=== PATIENT | male | born 1980 | race Caucasian/White ===

== ENCOUNTER 2016-02-17 15:19 | Inpatient (IN) | payer MEDICARE, MEDICAID ==
[~2016-02-17] VITALS: Ht 177.8 cm; Wt 76.4 kg
[2016-02-17] VITALS (13 sets, daily range): BP systolic 94–112; BP diastolic 65–77; PULSE 87–100; RESP 14–20; O2SAT 92–96
[~2016-02-17 15:19] MED LIST: MINERALS PO; NAPR220C11 PO; TEGRETOL 400 MG PO; VITAMINS PO
[2016-02-17] MEDS ORDERED: Polyethylene Glycol (PEG) 17 Gm Powder PO PRN (17:40)
[2016-02-17] MEDS ORDERED: Ondansetron 2 mg/mL 2 mL Inj IVPUSH PRN (17:40)
[2016-02-17] MEDS ORDERED: Alum-Mag Hydrox-Simeth 30 mL Suspension PO PRN (17:40)
--- NOTE | 2016-02-17 18:10 | PCM.HPMED ---
Subjective Date of Service Feb 17, 2016 Primary Provider: Admitting Physician: Glenroy Mims MD Primary Care Physician: Gautam Hammer MD Attending Physician: Glenroy Mims MD History of Present Illness: Initially present to [facility] on 02/11/2016 with 2 days fever Mom was sick Chest x-ray with bibasilar infiltrate with small there are bronchial ground WBC 18.5 with bands of 28 Admitted for sepsis, hypotension, pneumonia, possible UTI as well Past medical history significant for autism/developmental delay/seizure disorder /history of DVTs/history of recurrent UTI/asthma Originally complaining of shortness of breath and difficulty breathing PCP sent him to the ED initially Patient is a 35-year-old male with a medical history of developmental delay, nonverbal, seizure disorder, Hx of DVT and UTI initially presented with fever cough and abnormal x-ray with infiltrate at [place]. He was diagnosed with pneumonia sepsis, MRSA positive sputum. Since then developed A. fib with reported asystole up to 12 seconds. Patient is a 35-year-old male nonverbal with MHx for MR, seizure disorder, hx DVT, recurrent UTI, and asthma transfer from [facility] here for workup and treatment of possible heart block, in addition to continue medical management of MRSA pneumonia and paroxysmal atrial fibrillation. Patient initially presented to [facility] with Sepsis pneumonia subsequently developed arrhythmias. - Developed atrial fibrillation and converted back to normal sinus after diltiazem drip and 1 dose of metoprolol, 02/12/2016 - Reported intermitted pause, longest 12sec. asymptomatic however. - Initially developed atrial fibrillation and converted back to normal sinus after diltiazem drip and 1 dose of metoprolol, 02/12/2016 Allergies Coded Allergies: morphine (Verified Allergy, Severe, 02/17/16) Seizures penicillin G (Verified Allergy, Severe, 02/17/16) Uncoded Allergies: SULFA (Allergy, Severe, 01/17/11) Home Medications Albuterol 2.5 mg/3 mL via nebulizer when necessary Carbamazepine 400 mg a.m. and p.m. Warfarin 7.5 mg qd Levetiracetam 1000 mg a.m. and p.m. CoQ10 300 mg daily Multivitamin daily Vitamin D3 5000 international unit daily Vitamin C 1000 units daily Vitamin E 1000 units daily Probiotics PMH Development immediately Autism Seizure disorder History of DVT Recurrent UTI Spinal fracture in 2015 Head injury at childhood Bladder and bowel incontinence Surgical History No noted surgeries Family History Father with multiple medical problem still alive at 61 years old Mother unknown Brother development of daily living Social History Hx Alcohol Use: No Hx Substance Use: No Hx Tobacco Use: No Exam Vital Signs Vital Sign - Last Date Time Temp Pulse Resp B/P Pulse Ox O2 Delivery O2 Flow Rate FiO2 02/17/16 17:30 100 15 98/69 94 Oxy Mask 6.00 Lab and Diagnostics Labs Lab from [facility] 11/07/2016 WBC 8.3, Hgb 12, HCT 36.2, platelet clumping unable to report, no bands NA 143, K3.7, CL 110, CO2 is 27, BUN 5, CR 0.6, MG 1.9, calcium 9.2, albumin 2.2 Total bili 0.3, alkaline phosphatase 63, AST 33, ALT 35 Microbiology Per Culture report from [facility] Source sputum collected on 02/11/2016 Organism methicillin-resistant staph aureus Sensitivity panel as follow below Ciprofloxacin resistant Clindamycin resistant Erythromycin resistant Gentamicin sensitive Levofloxacin resistant The nasal lid sensitive Oxacillin resistant Trimethoprim/sulfamethoxazole sensitive Vancomycin sensitive Cardiac Echo Impressions Per echocardiogram report obtained from [facility] Impression 1. There is normal LV and RV systolic function 2. Both atria normal signs 3. Cannot completely exclude SVT in subcostal view due to image quality. However suspicious level given the fact that RV chamber size is normal RV systolic pressure is normal as well. Consider repeat focused study to rule out VSD with poor image quality 4. Visit dilated aortic root measuring at 3.9 cm 5. Mild to moderate tricuspid regurgitation with right ventricular systolic pressure measured at 19 mmhg Dictated by: Myron Whittington MD 02/13/16 3071 Assessment & Plan Patient is a 35-year-old male nonverbal with MHx for MR, seizure disorder, hx DVT, recurrent UTI, and asthma transfer from [facility] here for workup and treatment of possible heart block, in addition to continue medical management of MRSA pneumonia and paroxysmal atrial fibrillation. Patient initially presented to [facility] with Sepsis pneumonia subsequently developed arrhythmias. Arrhythmia, present on admission, active - Likely sepsis induced arrhythmias that will resolve with sepsis resolution - Concerns for incomplete heart block, possible evolving to luis 3rd degree block - Placed on telemetry with Pacer pads on. - Cardiology Dr. Mims has been consulted Paroxysmal afib, present on admission, active - Tried 1 dose of amiodarone failed to convert prior to transfer - Rate currently controlled - Telemetry as above Pneumonia - Increasing SOB with fevers, Crx/CTA showed bibasilar pneumonia - Sputum culture positive for methicillin resistant staph aureus sensitive to Linezolid - On the linezolid twice a day since 02/13/2016, initially on vancomycin, ertapenem, and Levaquin Hypoxia, POA, active - Current on nasal canula - ABG, BIPAP should he desat. Hypotension, present on admission, active - Received 2L NS bolus prior to arrival - Monitor, bolus fluid as needed Seizure disorder - Cont keppra 1000mg BID - Cont holding PO carbamazepine 400mg AM and 600mg PM. Linezolid interacts with carbamazepine. DVT prophylaxis: heparin subQ Antipyretic: Acetaminophen PRN Antinausea: Ondansetron PRN Bowel regiment PRN Patient is admitted under observation status with expected length of stay GREATER than 2 midnights due to severity of presenting symptoms, risk of adverse event, and complexity of treatment plan. VTE Prophylaxis: Sub-Q Heparin (Unfractionated) Resuscitation Status: CPR: Attempt Resuscitation Attending Statement The patient was seen and examined together with on 02/17/2016 and I agree with the history, exam and plan as outlined in the note above. 3L oximask diminished right side Mike Sun DO Feb 17, 2016 18:10 Toan Tidwell MD Feb 17, 2016 21:55
[2016-02-17] MEDS ORDERED: Albuterol 2.5 mg/3 mL Inhalation Solution NEB PRN (19:20)
--- NOTE | 2016-02-17 20:01 | NUR ---
Received/Transfer Received from [facility] about 1730 to [facility], Dr. Mims requested they stop on their way to the floor for assessment. Placed in Respiratory Isolation. VSS. Afebrile. Occ. weak cough. LS decreased in RLL. Trace pedal edema. Tele Afib 80's-low 100's. Pompa catheter in place and draining moderate-large amt. clear straw colored urine. Attends on. Transfer air mattress under pt. O2 on at 6L per oxymask with SPO2 92-96%. Makes eye contact but not following commands. Occ. Hiccups and grunts. Droolin. Watching TV. Face washed. No signs of pain. See EMR for further info. Called Report to Carlee Ramachandran RN about 1929. Transported to 2026 via stretcher by staff with all belongings at 1945 in no distress.
[2016-02-17] MEDS ORDERED: carBAMazepine 200 mg Tablet PO SCH ×2 (20:30→20:35)
[2016-02-17] MEDS: 0.9% Sodium Chloride 1,000 ML IV SCH (20:31)
[2016-02-17] MEDS: levETIRAcetam Inj 1,000 MG in IV Premix 1 EACH IV SCH (20:55)
[2016-02-17] MEDS: Linezolid Inj 600 MG in IV Premix 1 EACH IV SCH (22:26)
[2016-02-18] VITALS (8 sets, daily range): BP systolic 90–102; BP diastolic 51–77; PULSE 90–108; RESP 16–18; O2SAT 94–97
[2016-02-18] MEDS: Heparin 5,000 Unit/mL Inj SUBQ SCH ×3 (01:12→17:11)
[2016-02-18 05:14] LABS: BASOPHILS % (AUTO) 0.4 % (0-3); EOSINOPHILS % (AUTO) 1.4 % (0-5); MONOCYTES % (AUTO) 9.9 % (4-12); Mean Corpuscular Hemoglobin 29.5 pg (27.0-35.0); Mean Corpuscular Volume 85.3 fL (81-100); Platelet Count 307 bil/L (150-400)
[2016-02-18] MEDS ORDERED: Atropine 1 mg/10 mL (Code) Syringe ONE (05:51)
--- NOTE | 2016-02-18 06:23 | ABG ---
DateTimeAnalyzed 06:18:00 -_ pH ____7.453 - 7.350 7.450 pCO2 ___38.4__ -mmHg 35.0 45.0 pO2 ___81.2__ -mmHg 69.0 116 HCO3- ___26.4__ -mmol/L 22.0 26.0 ABE ____2.9__ -mmol/L -2.0 2.0 tHb ___12.4__ -g/dL O2Hb ___94.4__ -% COHb ____0.9__ -% MetHb ____0.9__ -% sO2 ___96.1__ -% 25.0 FIO2 ___32.0__ -% Drawn By [facility] - Date/Time Notified____ 06:23:00 -_ Liter_Flow ____6.0__ -L/min Oxygen Device 1 SIMP MASK - Notified By [facility] - Notified Whom RN - B 750 -mmHg tO2 ___16.5__ -Vol% Angel test _Positive -
--- NOTE | 2016-02-18 07:38 | NUR ---
Admit Pt arrived to floor and admitted to room 2026, report from REY nurse. Pt nonverbal at baseline, does not follow most commands but assists w/ turns and does not pull at lines. No family at bedside throughout shift, admission questions done through recall and by viewing records from [facility]. Pacer pads applied, and zole in room as well. NS running at 100 per orders, IV Keppra and Zyvox administered. Seizure precautions in place. SBPs 90s-100s, FELDT scale used, no objective signs of pain. Tele Afib 80s-100s
[2016-02-18] MEDS: 0.9% Sodium Chloride 1,000 ML IV SCH ×2 (07:48→18:17)
[2016-02-18] MEDS: levETIRAcetam Inj 1,000 MG in IV Premix 1 EACH IV SCH ×2 (07:49→20:11)
--- NOTE | 2016-02-18 07:52 | NUR ---
Asystole/Respiratory MT reported two 3.8 second pauses in the middle of night, pt did not objectively symptomatic. Early this morning MT alerted to staff that pt was in asystole. Pt unresponsive on arrival but almost immediately woke up shaking (almost seizure like) for a brief moment and then seemed back to normal. When reviewed w/ charge nurse, pt was in asystole for about 15 seconds. Night MD and cardiology MD Kilgore notified. Pt currently in Afib 90s-110s, per Dr. Kilgore, keep pt NPO, no new orders at this time. Zole is on in pt room and atropine is at bedside. Pt has been NPO all shift as no PO meds ordered and swallow eval not done. MT reported one more 6 second pause this morning. Pt on 4-6L oxymask, monitored on [employer]UD[employer] PROJECT MANAGER. PRN suctioning, pt has occasional ineffective cough.
--- NOTE | 2016-02-18 08:03 | DRSVH ---
PROCEDURE: X-RAY CHEST ONE VIEW, PORTABLE ([id number]) INDICATIONS: pneumonia TECHNIQUE: One view of the chest was acquired. COMPARISON: Outside Film, CR, XR CHEST 1VW, 02/15/2016, 7:09. FINDINGS: Surgical changes and devices: PICC line projects to the atrial-caval junction via right-sided approac h. Lungs and pleura: No pleural effusions or pneumothorax. Bilateral perihilar opacities and cephalizat ion of pulmonary vasculature compatible with pulmonary edema. Mediastinum: Mediastinal contours appear normal. Heart size is normal. Bones and chest wall: No suspicious bony lesions. Overlying soft tissues appear unremarkable. IMPRESSION: Pulmonary edema. Dictated by: Kathi Huynh MD, PhD on 02/18/2016 at 8:01 Approved by: Kathi Huynh MD, PhD on 02/18/2016 at 8:01
[2016-02-18] MEDS: Linezolid Inj 600 MG in IV Premix 1 EACH IV SCH ×2 (08:29→20:11)
[2016-02-18 11:26] LABS: INR 1.18 ratio
[2016-02-18] MEDS ORDERED: MULT-666 PO (12:43)
[2016-02-18] MEDS ORDERED: CRB200T PO (12:43)
[2016-02-18] MEDS ORDERED: HYDR-4003 PO (12:43)
[2016-02-18] MEDS ORDERED: UBID10CA4 PO (12:43)
[2016-02-18] MEDS ORDERED: LEVE100014 PO (12:43)
[2016-02-18] MEDS ORDERED: CARB100C8 PO (12:43)
[2016-02-18] MEDS ORDERED: CEPH500C PO (12:43)
--- NOTE | 2016-02-18 15:40 | DRSVH ---
[facility] [address] [place] [address] Echocardiogram Report Name: PB MUNOZ Hector e: 02/18/2016 Hospital Exam Location: [facility] Gender: Male : 1980 Age: 35 yrs BP: 95/71 mmHg Reason For Study: R/O VSD Ordering Physician: HOSPITALIST [facility] Performed By: Sean Myers Referring Physician: LEROY LEGGETT Interpretation Summary The left ventricle is normal in size. There is normal left ventricular wall thickness. There is no ventricular septal defect visualized. The left ventricular ejection fraction is grossly normal. Procedure: A two-dimensional transthoracic echocardiogram with color flow and Doppler was performed in limited views only. The study quality was technically adequate. Comparison is made with the echocardiogram of 02/13/16. The patient was in atrial fibrillation with heart rates between 81-107 bpm during the exam. Left Ventricle: The left ventricle is normal in size. There is normal left ventricular wall thickness. There is no ventricular septal defect visualized. The left ventricular ejection fraction is grossly normal. Electronically signed by: Louis Mcdonough on Reading Physician:02/18/2016 03:39 PM
[2016-02-18] MEDS: DOPamine 800 mg/250 mL D5W 800,000 MCG in IV Premix 1 EACH IV SCH (17:42)
--- NOTE | 2016-02-18 18:27 | PCM.PNMED ---
Subjective Date of Service Feb 18, 2016 Subjective Initially present to [facility] on 02/11/2016 with 2 days fever Mom was sick Chest x-ray with bibasilar infiltrate with small there are bronchial ground WBC 18.5 with bands of 28 Admitted for sepsis, hypotension, pneumonia, possible UTI as well Past medical history significant for autism/developmental delay/seizure disorder /history of DVTs/history of recurrent UTI/asthma Originally complaining of shortness of breath and difficulty breathing PCP sent him to the ED initially Patient is a 35-year-old male with a medical history of developmental delay, nonverbal, seizure disorder, Hx of DVT and UTI initially presented with fever cough and abnormal x-ray with infiltrate at [place]. He was diagnosed with pneumonia sepsis, MRSA positive sputum. Since then developed A. fib with reported asystole up to 12 seconds. Patient is a 35-year-old male nonverbal with MHx for MR, seizure disorder, hx DVT, recurrent UTI, and asthma transfer from [facility] here for workup and treatment of possible heart block, in addition to continue medical management of MRSA pneumonia and paroxysmal atrial fibrillation. Patient initially presented to [place] with Sepsis pneumonia subsequently developed arrhythmias. - Developed atrial fibrillation and converted back to normal sinus after diltiazem drip and 1 dose of metoprolol, 02/12/2016 - Reported intermitted pause, longest 12sec. asymptomatic however. - Initially developed atrial fibrillation and converted back to normal sinus after diltiazem drip and 1 dose of metoprolol, 02/12/2016 Exam Vital Signs Vital Sign - Last Date Time Temp Pulse Resp B/P Pulse Ox O2 Delivery O2 Flow Rate FiO2 02/18/16 04:53 97 18 94 OxyMask 6.00 02/18/16 04:48 36.4 102/65 Intake and Output 02/17/16 02/17/16 02/18/16 Cumulative From/Thru 15:00 23:00 07:00 02/17/16 20:34 - 02/18/16 06:32 Output Total 2250 ml 2250 ml Balance -2250 ml -2250 ml Output Urine Total 2250 ml 2250 ml # Bowel Movements 1 1 Exam General: Alert, Oriented X1, Cooperative, No Acute Distress Head: Normocephalic, atraumatic, old scar over right eye from previous head trauma. External ears normal, . Eyes: PERRLA, EOMI. Anicteric sclerae. Mouth: Mouth Normal, Mucous Membranes Moist/[place] Neck: Neck supple with full range of motion. Chest & Lungs: Bilateral crackles, wheezes, heard at lung bases, no rhonchi. Cardiovascular: Irregularly Irregular rhythm, Normal S1, Normal S2, No Murmurs/ Rubs/Gallops Abdomen: Non-tender, Non-distended, No masses, Normoactive bowel tones, Soft Musculoskeletal: Limited range of motion Range of Motion Extremities: No cyanosis/clubbing/edema bilaterally Neurological: Non verbal, Neurologic decficit fomr baseline patient normally able ambulate with minimal assistance on own and follow basic commands, on Exam patient responsive to his name and able to follow basic commands, patient able to squeeze fingers bilaterally, raise legs against resistance bilaterally, Cerebellar Function could not be assessed IVs and Medications Medications Reviewed: Medications were reviewed in detail Lab and Diagnostics Result Diagram: 02/18/16 0510 02/18/16 0510 Microbiology Per Culture report from [facility] Source sputum collected on 02/11/2016 Organism methicillin-resistant staph aureus Sensitivity panel as follow below Ciprofloxacin resistant Clindamycin resistant Erythromycin resistant Gentamicin sensitive Levofloxacin resistant The nasal lid sensitive Oxacillin resistant Trimethoprim/sulfamethoxazole sensitive Vancomycin sensitive X-Rays, CTs and MRIs Chest X-Ray IMPRESSION: Pulmonary edema. Dictated by: Kathi Huynh MD, PhD on 02/18/2016 at 8:01 Approved by: Kathi Huynh MD, PhD on 02/18/2016 at 8:01 Cardiac Echo Impressions Per echocardiogram report obtained from [facility] Impression 1. There is normal LV and RV systolic function 2. Both atria normal signs 3. Cannot completely exclude SVT in subcostal view due to image quality. However suspicious level given the fact that RV chamber size is normal RV systolic pressure is normal as well. Consider repeat focused study to rule out VSD with poor image quality 4. Visit dilated aortic root measuring at 3.9 cm 5. Mild to moderate tricuspid regurgitation with right ventricular systolic pressure measured at 19 mmhg Dictated by: Myron Whittington MD 02/13/16 5159 Echocardiogram 02/18/16 Interpretation Summary The left ventricle is normal in size. There is normal left ventricular wall thickness. There is no ventricular septal defect visualized. The left ventricular ejection fraction is grossly normal. Electronically signed by: Louis Mcdonough on Reading Physician:02/18/2016 03:39 PM Assessment & Plan Patient is a 35-year-old male nonverbal with MHx for MR, seizure disorder, hx DVT, recurrent UTI, and asthma transfer from [facility] here for workup and treatment of possible heart block, in addition to continue medical management of MRSA pneumonia and paroxysmal atrial fibrillation. Patient initially presented to [facility] with Sepsis pneumonia subsequently developed arrhythmias. Hospital Day 1 1. Arrhythmia, present on admission, active - Likely sepsis induced arrhythmias that will resolve with sepsis resolution - Concerns for incomplete heart block, possible evolving to luis 3rd degree block - Placed on telemetry with Pacer pads on. - Cardiology Dr. Mims has been consulted, plan to place pacemaker once infection is resolved - Low dose dopamine drip ordered for bradycardia - ECHO ordered, no signs of VSD 2. Paroxysmal afib, present on admission, active - Tried 1 dose of amiodarone failed to convert prior to transfer - Rate currently controlled - Telemetry as above 3. Pneumonia, present on admission, active - Increasing SOB with fevers, Crx/CTA showed bibasilar pneumonia - Sputum culture positive for methicillin resistant staph aureus sensitive to Linezolid - On the linezolid twice a day since 02/13/2016, initially on vancomycin, ertapenem, and Levaquin - Infectious disease consulted, we appreciate their help and expertise on managing this case. 4. Hypoxia, POA, active - Current on nasal canula - ABG, BIPAP should he desat. 5.Hypotension, present on admission, active - Received 2L NS bolus prior to arrival - Monitor, bolus fluid as needed 6.Seizure disorder - Cont keppra 1000mg BID - Cont holding PO carbamazepine 400mg AM and 600mg PM. Linezolid interacts with carbamazepine. DVT prophylaxis: heparin subQ Antipyretic: Acetaminophen PRN Antinausea: Ondansetron PRN Bowel regiment PRN Disposition: Patient is admitted under observation status with expected length of stay GREATER than 2 midnights due to severity of presenting symptoms, risk of adverse event, and complexity of treatment plan. VTE Prophylaxis: Sub-Q Heparin (Unfractionated) Resuscitation Status: CPR: Attempt Resuscitation Attending Statement The patient was seen and examined together with Dr. Leggett on 02/18/2016 and I agree with the history, exam and plan as outlined in the note above. . LEROY LEGGETT DO Feb 18, 2016 06:50 Yonis Peralta MD Feb 19, 2016 12:41
[2016-02-18] MEDS: levETIRAcetam 500 mg Tablet PO SCH (19:33)
[2016-02-19] VITALS (8 sets, daily range): BP systolic 90–102; BP diastolic 62–74; PULSE 68–99; RESP 13–21; O2SAT 93–96
[2016-02-19] MEDS: Heparin 5,000 Unit/mL Inj SUBQ SCH ×4 (00:30→23:25)
[2016-02-19 05:15] LABS: BASOPHILS % (AUTO) 0.1 % (0-3); EOSINOPHILS % (AUTO) 1.3 % (0-5); MONOCYTES % (AUTO) 11.4 % (4-12); Mean Corpuscular Hemoglobin 29.9 pg (27.0-35.0); Mean Corpuscular Volume 85.6 fL (81-100); NEUTROPHILS % (AUTO) 52.4 % (40-74); Platelet Count 344 bil/L (150-400)
--- NOTE | 2016-02-19 05:16 | NUR ---
Cardiac, neuro VS as noted. Tele afib with hr 90s and occasional paced beats on zoll monitor set for pacing. Blood pressures mostly 90s systolically. Pt arouses easily but is nonverbal which is his norm per report. Able to pick out a movie when offered. Awake off and on through the night. Remains NPO. Pompa cath in place with adequate uop. Right PICC in place with NS at 100ml/h.
[2016-02-19 05:43] LABS: TROPONIN T 0.01 ug/L (0.0-0.011)
[2016-02-19 05:54] LABS: Magnesium 2.1 mg/dL (1.6-2.6); Phosphorus 2.9 mg/dL (2.5-4.9)
[2016-02-19] MEDS: 0.9% Sodium Chloride 1,000 ML IV SCH ×3 (06:00→21:20)
[2016-02-19] MEDS: levETIRAcetam Inj 1,000 MG in IV Premix 1 EACH IV SCH ×2 (07:51→21:38)
[2016-02-19] MEDS: Linezolid Inj 600 MG in IV Premix 1 EACH IV SCH ×2 (07:51→21:54)
[2016-02-19] MEDS: levETIRAcetam 500 mg Tablet PO SCH ×2 (07:52→20:30)
[2016-02-19] MEDS: DOPamine 800 mg/250 mL D5W 800,000 MCG in IV Premix 1 EACH IV SCH (07:52)
--- NOTE | 2016-02-19 10:15 | NUR ---
Evaluation completed. Please go to "Notes" then click on "Assessments and Notes" (bottom left corner of screen). Then select appropriate discipline tab on top of screen.
--- NOTE | 2016-02-19 10:46 | NUR ---
SAMM: Asked SMOKEHOUSE WORKER to follow up with Mother via phone, patient is delayed and unable to sign SAMM.
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
--- NOTE | 2016-02-19 12:50 | NUR ---
P: Respiratory Distress I: 5L/OM with sats 92-94%. Afebrile. A-fib with controlled rate. No pauses or pace beats noted at this time. ZOLL on for demand pacer. NPO except thick full liquid 1;1. Turned Q 2 hours. Incontinent of stool. Pompa from home leaks at times. Partial bath, renu care and linen changed. SCD's on. NS 100cc/hr via rt PICC. Course breath sounds with decreased at bases left>right. Pt non verbal and unable to follow commands. Pt can point to the movie he wants to watch. Pt watching TV and does smile so he appears to be enjoying it. No seizure activity noted. Keppra given IV. E: Stable S: Seizure precautions in effect with pads in place. Frequent rounding as pt is unable to use call light.
--- NOTE | 2016-02-19 13:32 | NUR ---
Social Work: Initial Assessment D: Per EMR review, pt is a 35 year old male admitted for dysrhythmia. Pt is Medicare with [facility] supplement; pt has no LTC insurance or VA benefits. PCP is Gautam Hammer MD. Advanced directives not completed- information provided to pt's mother. Readmits core is moderate, 04/14. MEAT SPECIALIST met with pt and mother at bedside. Sw role explained; see initial assessment. Pt is developmentally delayed and non-verbal; relies on mother to complete assessment. Pt lives in [place] with his mother, who is his primary caregiver. Pt is I with ADL's and uses no DME. Pt does not drive. Pt currently received 116 hours of DDA caregiving. Mother is designated caregiver for the pt along with pt's younger brother who is also developmentally delayed. Mother declined to provided DDA CM name and information. Declined to have clinicals faxed to CM stating "I don't need her to mess anything up." Mother anticipates the pt to discharge back home. Pt has never had skilled rehab or home health. She is requesting a list of respite caregivers as she is currently sick and relying on a neighbor for additional help with the pt and brother. MEAT SPECIALIST provided a list of in-home caregivers contracted through [employer]. A: Pt who is developmentally delayed but I with ADLS at baseline. P: Anticipate pt to discharge home via POV once medically stable; MEAT SPECIALIST to continue to follow and assist with dcp if needs arise. BIANCA Edge Addendum: 02/19/16 at 1342 by MINAL CHUNG Amended: Links added.
[2016-02-19] MEDS ORDERED: Acetaminophen IV 1,000 MG in IV Premix 1 EACH IV PRN (15:10)
[2016-02-20] VITALS (7 sets, daily range): BP systolic 87–110; BP diastolic 50–67; PULSE 68–110; RESP 16–20; O2SAT 92–99
--- NOTE | 2016-02-20 01:33 | NUR ---
Bradycardia Pt experienced one episode of bradycardia with HR in the 30's. Pt asymptomatic, did not respond to verbal questions. Pt immediately went back to afib in the 90-low 100's.
[2016-02-20] MEDS: 0.9% Sodium Chloride 1,000 ML IV SCH ×2 (03:15→17:07)
[2016-02-20 05:21] LABS: BASOPHILS % (AUTO) 0.4 % (0-3); EOSINOPHILS % (AUTO) 1.2 % (0-5); Mean Corpuscular Hemoglobin 29.4 pg (27.0-35.0); Mean Corpuscular Volume 86.1 fL (81-100); NEUTROPHILS % (AUTO) 52.4 % (40-74); Platelet Count 335 bil/L (150-400)
[2016-02-20] MEDS ORDERED: Sodium Chloride LOK Flush 10 mL Syringe IVFLUSH PRN ×2 (06:30)
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
[2016-02-20] MEDS: levETIRAcetam Inj 1,000 MG in IV Premix 1 EACH IV SCH ×2 (08:56→19:57)
[2016-02-20] MEDS: Heparin 5,000 Unit/mL Inj SUBQ SCH ×2 (08:56→17:07)
[2016-02-20] MEDS: Linezolid Inj 600 MG in IV Premix 1 EACH IV SCH ×2 (09:15→19:59)
[2016-02-20] MEDS: DOPamine 800 mg/250 mL D5W 800,000 MCG in IV Premix 1 EACH IV SCH (11:52)
--- NOTE | 2016-02-20 14:30 | DRSVH ---
PROCEDURE: X-RAY CHEST ONE VIEW ([id number]) INDICATIONS: Catheter tip placement TECHNIQUE: One view of the chest was acquired. COMPARISON: [facility], CR, XR CHEST 1VW (PORTABLE), 02/18/2016, 6:25. Outside Film, CR, XR CHEST 1VW, 02/15/2016, 7:09. FINDINGS: Surgical changes and devices: There is a right upper extremity PICC line with the tip extending into the right atrium. Recommend withdrawal by approximately 2.5 cm. Lungs and pleura: No pleural effusions or definite pneumothorax. The low lung volumes. There is pu lmonary edema redemonstrated as well as confluent right perihilar opacities compatible with consolida tion. Mediastinum: Mediastinal contours appear unchanged. Heart size is normal. Bones and chest wall: No suspicious bony lesions. Overlying soft tissues appear unremarkable. IMPRESSION: 1. PICC line tip extends into the right atrium. Recommend withdrawal by approximately 2.5 cm. 2. Persistent pulmonary edema as well as confluent right perihilar opacities compatible consolidatio n and likely reflect pneumonia. Dictated by: Pastor Kraus M.D. on 02/20/2016 at 14:28 Approved by: Pastor Kraus M.D. on 02/20/2016 at 14:28
--- NOTE | 2016-02-20 15:04 | NUR ---
NUTRITION ASSESSMENT Assess: 35 yo M w/ arrhythmia awaiting pacer placement. Pt w/ history of dysphagia. ST currently recommending a nectar thick full liquid diet. PMHx: Developmental delay, autism, seizures, DVT, recurrent UTI, spinal fracture, head injury during childhood, bladder and bowel incontinence, dysphagia. LABS: Reviewed. K 3.4, Cr 0.36, Ca 8.4 MEDICATIONS: Reviewed. DIET: [place] thick full liquid, No PO recorded yet DIET Hx/INTAKE OFFICE CASHIER: Dysphagia type diet GI symptoms/stool: BM x1 02/18 Skin integrity: No issues reported; Anjel: 13 ANTHROPOMETRICS: Current Wt: 75.7 kg BMI: 23.9 kg/i6Ktcpy Wt: 75.7 kg IBW: 75.5 kgRecent wt changes: Wt stable ESTIMATED NEEDS: Calories: 0157-0619 kcal/d (25-30 kcal/kg/d) Protein: 75-90g/d (1-1.2 g/kg/d) Fluids: 4434-9936 ml/d (1 ml/kcal/d) ADDITIONAL COMMENTS: Height obtained from previous visit in 2010 NUTRITION DIAGNOSIS: 1) Chewing/swallowing difficulty related to cognitive delay as evidenced by need by thickened full liquid diet and history of dysphagia. INTERVENTION: 1) Diet per ST recommendations 2) Will monitor PO intake and add snacks/supplements as needed MONITOR/EVALUATE: Diet adv/linda, PO intake, Labs, Wt, Nutrition status, POC. Will follow per moderate nutrition risk guidelines.
[2016-02-20] MEDS ORDERED: KCl 20 mEq/100 mL(CENTRAL) 20 MEQ in IV Premix 1 EACH IV ONE (16:10)
[2016-02-20] MEDS ORDERED: Acetaminophen IV 650 MG in IV Premix 1 EACH IV PRN (17:15)
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
--- NOTE | 2016-02-20 19:40 | NUR ---
Hypotension Pt BP has been hypotensive through out the day. Current BP on left arm 87/53. MAP has been below 63 for the last several BP readings. Pt asymptomatic. Molding Line Operator wanda paged resident with BP readings and current IV medications infusing.
--- NOTE | 2016-02-20 19:46 | NUR ---
Asystole/Heart Rhythm Pt. had a 11-11.5sec pause x1 on shift today. MD made aware and Pt. is put on dopamine 2mcg/kg/min, weight used is 75.7kg. Zoll attachment is still on PT. for precautions. Pt. went from AFIB to SR at 1334 and is still SR at this time HR in the 80's. Potassium lab value was 3.4 and supplemental potassium given IV per MD order. Pt. has also developed redness to his right eye, MD made aware of this onset.
[2016-02-20] MEDS: 0.9% Sodium Chloride 250 ML IV PRN ×2 (22:40→23:03)
[2016-02-21] VITALS (12 sets, daily range): BP systolic 85–104; BP diastolic 56–69; PULSE 78–97; RESP 16–18; O2SAT 94–97
[2016-02-21] MEDS: Heparin 5,000 Unit/mL Inj SUBQ SCH ×4 (01:34→23:33)
[2016-02-21] MEDS: 0.9% Sodium Chloride 1,000 ML IV SCH ×3 (01:41→21:02)
[2016-02-21 05:35] LABS: Mean Corpuscular Hemoglobin 29.3 pg (27.0-35.0); Platelet Count 344 bil/L (150-400)
[2016-02-21 06:21] LABS: BASOPHILS % (AUTO) 1 % (0-3); EOSINOPHILS % (AUTO) 1 % (0-5); MONOCYTES % (AUTO) 8 % (4-12); NEUTROPHILS % (AUTO) 64 % (40-74)
[2016-02-21 06:27] LABS: Magnesium 1.9 mg/dL (1.6-2.6)
[2016-02-21] MEDS ORDERED: KCl 40 mEq/100 mL (CENTRAL) 40 MEQ in IV Premix 1 EACH IV ONE (06:30)
[2016-02-21] MEDS: 0.9% Sodium Chloride 250 ML IV PRN ×3 (06:35→23:32)
[2016-02-21] MEDS: Linezolid Inj 600 MG in IV Premix 1 EACH IV SCH ×2 (08:53→21:03)
[2016-02-21] MEDS: levETIRAcetam Inj 1,000 MG in IV Premix 1 EACH IV SCH ×2 (08:53→20:20)
[2016-02-21 15:39] LABS: Magnesium 2.1 mg/dL (1.6-2.6)
[2016-02-21] MEDS: DOPamine 800 mg/250 mL D5W 800,000 MCG in IV Premix 1 EACH IV SCH (16:04)
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
--- NOTE | 2016-02-21 18:11 | NUR ---
Low BP/unusual sounds/food from home SBP in low 80s with MAP 55-60 with heart rate in low to high 70s- dopamine drip was increased from 7mcg/kg/min to 8 mcg/kg/min- SBP increased to 90-100 with MAP increasing to 60-65 ranges and heart rate 80-90s- patient remain on MP30 bedside monitoring . During the shift patient would periodically make granting noises or noises resembling sounds of excitement especially while watching on TV movies family brought for him from home- patient remain non verbal otherwise. Patients mother came to visit for some hours today and was asked if it was normal for the patient to make sound/noises as described above. She stated that usually he does when he is exited or wants to get attention and that was normal for him. Patient's mother asked if she could bring food from home for him. She stated that she feeds her son only organic food at home and most of the food is home grown and she would prefer to bring food from home for the patient. Because of patients dietary restrictions Speech Therapist was asked to consult with parent. Patients mother verbalized understanding of what texture and thickness home food should be for full liquid nectar thick and pure food.
--- NOTE | 2016-02-21 18:16 | DRSVH ---
PROCEDURE: X-RAY CHEST ONE VIEW, PORTABLE ([id number]) INDICATIONS: PICC line placement TECHNIQUE: One view of the chest was acquired. COMPARISON: [facility], CR, XR CHEST 1VW, 02/20/2016, 12:33. FINDINGS: Surgical changes and devices: Right PICC line tip extends to the region of the cavoatrial junction. Lungs and pleura: There is a persistent moderate pleural effusion with increased right basilar consol idation or atelectasis. In addition, bilateral perihilar opacities are demonstrated consistent with infection or asymmetric edema. There is slightly increased mild pulmonary edema. Mediastinum: Mediastinal contours appear prominent likely due to portable technique and low volumes. Heart size is normal. Bones and chest wall: No suspicious bony lesions. Overlying soft tissues appear unremarkable. IMPRESSION: 1. PICC line tip extends to the region of the cavoatrial junction. 2. Increased small right pleural effusion with medial right basilar consolidation or atelectasis. 3. Bilateral perihilar opacities consistent with pneumonia or asymmetric edema. Slightly increased diffuse pulmonary edema is also noted. Dictated by: Pastor Kraus M.D. on 02/21/2016 at 18:14 Approved by: Pastor Kraus M.D. on 02/21/2016 at 18:14
--- NOTE | 2016-02-21 18:42 | NUR ---
Potassium replacement Serum potassium this morning was 3.7- consulted with pharmacist and patient was given 40meq of K- rider IV over 4h. Potassium rechecked 2h after infusion was completed was 4.4. Magnesium level rechecked at the time as well was 2.1. consulted with attending MD keep potassium level>4.0 at all times- MD ordered follow up BMP for this evening- gold top was sent to the lab at 1825- waiting for results.
[2016-02-22 01:10] VITALS: BP 93/60; PULSE 84; RESP 13
[2016-02-22] MEDS: 0.9% Sodium Chloride 250 ML IV PRN ×2 (01:10→05:54)
[2016-02-22] MEDS: 0.9% Sodium Chloride 1,000 ML IV SCH ×4 (01:10→20:45)
[2016-02-22 03:41] VITALS: BP 87/55; PULSE 112; RESP 17; O2SAT 97
--- NOTE | 2016-02-22 04:12 | NUR ---
Sinus tachycardia Pt had episode of sustained Sinus tachycardia with sustained HR 130s. Hypotensive with map <60. Bolus 250 cc x2 given. Stat EKG done. Dopamine turned down to off. Md made aware. Md at bedside at this time.
[2016-02-22] MEDS: Phenylephrine Inj 20,000 MCG in 0.9% Sodium Chloride 250 ML IV SCH ×3 (04:30→22:06)
--- NOTE | 2016-02-22 05:02 | NUR ---
Transferred to room 2010. Pt had hypotension despite after bolus. Md order to move to CCU. Moved patient to room 2010 with all belonging, meds and chart. Dopamine has been off for about an 1 hour now. Heart rate noted in 70s-80s at this time.
--- NOTE | 2016-02-22 05:12 | ABG ---
DateTimeAnalyzed 05:09:00 -_ pH ____7.401 - 7.350 7.450 pCO2 ___39.6__ -mmHg 35.0 45.0 pO2 ___82.6__ -mmHg 69.0 116 HCO3- ___24.1__ -mmol/L 22.0 26.0 ABE ___-0.1__ -mmol/L -2.0 2.0 tHb ___11.0__ -g/dL O2Hb ___95.1__ -% COHb ____0.9__ -% MetHb ____0.8__ -% sO2 ___96.7__ -% 25.0 FIO2 ___50.0__ -% Drawn By MK - Date/Time Notified____ 05:12:00 -_ Liter_Flow ____8.0__ -L/min Oxygen Device 1 __oxymask - B 765 -mmHg tO2 ___14.8__ -Vol% Angel test _Positive -
[2016-02-22 05:14] LABS: BASOPHILS % (AUTO) 0.2 % (0-3); EOSINOPHILS % (AUTO) 0.7 % (0-5); MONOCYTES % (AUTO) 7.4 % (4-12); Mean Corpuscular Hemoglobin 29.3 pg (27.0-35.0); Mean Corpuscular Volume 87.2 fL (81-100); NEUTROPHILS % (AUTO) 72.1 % (40-74); Platelet Count 356 bil/L (150-400)
--- NOTE | 2016-02-22 07:32 | NUR ---
Transfer in to CCU Patient transferred from [facility] for hypotension and SVT. Dopamine gtt stopped, SBP mid 80's, map 60's, HR down to 70-80's NSR, Hung NS 1L bolus via picc line, cvp 4-5, wilson drained with 1800cc uo, had xl BM, loose stool, sent specimen for C.Diff.
[2016-02-22 08:11] VITALS: BP 96/70; PULSE 77; RESP 17; O2SAT 97
[2016-02-22] MEDS: levETIRAcetam Inj 1,000 MG in IV Premix 1 EACH IV SCH ×2 (08:16→20:35)
[2016-02-22] MEDS: Heparin 5,000 Unit/mL Inj SUBQ SCH ×2 (08:20→16:08)
[2016-02-22] MEDS: Linezolid Inj 600 MG in IV Premix 1 EACH IV SCH (08:20)
[2016-02-22 12:18] VITALS: BP 97/70; PULSE 87; RESP 22; O2SAT 98
--- NOTE | 2016-02-22 12:31 | NUR ---
JACKELINE signed by patient's mother
[2016-02-22 15:58] VITALS: BP 92/60; PULSE 82; RESP 17; O2SAT 96
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
--- NOTE | 2016-02-22 17:59 | NUR ---
Low BP SBP 85-105 with MAP 6070s through most of the day. Patient remained in SR 70s 90s. This afternoon MAP decreased to 55-60 ranges patient was given 500ml NS bolus over 2h- BP/MAP improved, CVP 6-7- please refer to CCU flows sheet for vitals and details. Total urine output in the last 12h - 2300ml. Consulted with phenylephrine drip continued to be on hold- will use if necessary- continue assessment.
[2016-02-22 20:00] VITALS: BP 89/53; PULSE 83; RESP 18; O2SAT 96
[2016-02-23] VITALS (19 sets, daily range): BP systolic 89–105; BP diastolic 54–72; PULSE 63–87; RESP 11–22; O2SAT 95–100
[2016-02-23] MEDS: Heparin 5,000 Unit/mL Inj SUBQ SCH ×3 (00:10→16:30)
--- NOTE | 2016-02-23 02:19 | NUR ---
neuro/bp pt alert, dozing intermittently, likes to watch movies on tv, weak movement of extrem, arms>legs, pt nonverbal, appears comfortable, turn q2hrs, pt able to turn self somewhat in bed also, pt given snack prior to being npo after mn of pureed food and nectar thick liquid to drink, no choking noted, oral care done, good uop per f/c, cvp=7-8, bp low normal--map 65-75, map low 60's when pt asleep for brief periods --then map back to normal when awake, uop continues to be good, no s/sx of n/v, po intake was good until npo after mn, tele- sr, hr 70-90's, no s/sx of cp ls- course t/o with decreased bases, sats on 8 liters o2 per oxymask =mid to upper 90's, oxymask lifted up to forehead frequently for po intake during evening, sats remained stable, o2 decreased to six liters o2 per oxy mask, sats mid 90's, strong congested cough, sputum swallowed, droplet precautions taken, see ccu flow sheet, continue monitoring, plan:npo after mn, scheduled for pacer at noon-- assess per cardiology in am,
[2016-02-23 04:11] LABS: BASOPHILS % (AUTO) 0.1 % (0-3); EOSINOPHILS % (AUTO) 0.5 % (0-5); MONOCYTES % (AUTO) 8.2 % (4-12); Mean Corpuscular Hemoglobin 29.3 pg (27.0-35.0); Mean Corpuscular Volume 88.4 fL (81-100); NEUTROPHILS % (AUTO) 64.4 % (40-74); Platelet Count 352 bil/L (150-400)
[2016-02-23] MEDS ORDERED: Lactated Ringer's 1,000 ML IV ONE (05:00)
[2016-02-23] MEDS: 0.9% Sodium Chloride 1,000 ML IV SCH ×2 (06:23→14:28)
[2016-02-23] MEDS: Phenylephrine Inj 20,000 MCG in 0.9% Sodium Chloride 250 ML IV SCH ×2 (08:06→08:22)
[2016-02-23] MEDS: levETIRAcetam Inj 1,000 MG in IV Premix 1 EACH IV SCH (08:22)
--- NOTE | 2016-02-23 10:00 | NUR ---
SAMM Signed on 02/22/16
--- NOTE | 2016-02-23 10:50 | NUR ---
P: Pacer placement I: Report given to ALEJO Lindsey in [place]. LR infusing via DL PICC without difficulty. NPO. [place] patent and draining light yellow urine. NSR. Afebrile. E: Stable S: Frequent rounding. Turned q 2 hours.
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
[2016-02-23] MEDS ORDERED: fentaNYL-PF 50 mCg/mL 2 mL Inj ONE (11:39)
[2016-02-23] MEDS ORDERED: Propofol 10,000 mCg/mL 20 mL Inj ONE (11:39)
[2016-02-23] MEDS ORDERED: Vancomycin 1,000 mg/200 mL D5W IV ONE (12:45)
[2016-02-23] MEDS ORDERED: 0.9% Sodium Chloride 250 ML ONE (12:49)
[2016-02-23] MEDS ORDERED: Vancomycin 1,000 mg Inj ONE (12:49)
[2016-02-23] MEDS ORDERED: Bupivacaine-MPF 0.5% 30 mL Inj ONE (12:49)
[2016-02-23] MEDS ORDERED: Heparin 5,000 Units/500 mL NS Premix IV ONE (12:49)
[2016-02-23] MEDS ORDERED: Neostigmine 1 mg/mL 5 mL Inj ONE (13:39)
[2016-02-23] MEDS ORDERED: Lactated Ringer's 1,000 ML IV SCH (14:24)
[2016-02-23] MEDS ORDERED: Lactated Ringer's 500 ML IV PRN (14:24)
[2016-02-23] MEDS ORDERED: Atropine 0.4 mg/mL Inj IVPUSH PRN (14:25)
[2016-02-23] MEDS ORDERED: Labetalol 5 mg/mL 4 mL Inj IV PRN (14:25)
[2016-02-23] MEDS ORDERED: Ondansetron 2 mg/mL 2 mL Inj IVPUSH PRN (14:25)
[2016-02-23] MEDS ORDERED: Phenylephrine 10,000 mCg/mL Inj IVPUSH PRN (14:25)
[2016-02-23] MEDS ORDERED: fentaNYL-PF 50 mCg/mL 2 mL Inj IVPUSH PRN (14:25)
[2016-02-23] MEDS ORDERED: EPHEDrine Sulfate 50 mg/mL Inj IVPUSH PRN (14:25)
[2016-02-23] MEDS ORDERED: hydrALAZINE 20 mg/mL Inj IVPUSH PRN (14:25)
--- NOTE | 2016-02-23 14:54 | NUR ---
P: Asystolic pauses I: No pauses noted. NSR. VSS. Afebrile. 6L/OM with sats stable. NPO. pacemaker scheduled today and is in [employer] then to [facility]. Mother here. [place]pa patent and draining light yellow urine. Rt PICC patent. SCD's on. Turned Q 2 hours. E: Stable S: Frequent rounding.
--- NOTE | 2016-02-23 14:55 | DRSVH ---
PROCEDURE: X-RAY CHEST ONE VIEW, PORTABLE ([id number]) INDICATIONS: For new leads placed TECHNIQUE: One view of the chest was acquired. COMPARISON: [facility], CR, XR CHEST 1VW (PORTABLE), 02/21/2016, 15:12. FINDINGS: Surgical changes and devices: Dual chamber cardiac pacer noted. PICC line is stable. Lungs and pleura: No small right-sided pleural effusion is noted. Increased opacification is noted t he lung bases bilaterally right greater than left representing atelectasis versus pneumonia. Mediastinum: Mediastinal contours appear normal. Heart size is normal. Bones and chest wall: No suspicious bony lesions. Overlying soft tissues appear unremarkable. IMPRESSION: 1. Status post placement of dual-chamber cardiac pacer. 2. Bibasilar opacities right greater than left which could represent atelectasis or pneumonia. Please correlate with clinical data. 3. Small right-sided pleural effusion. Dictated by: Kathi Huynh MD, PhD on 02/23/2016 at 14:54 Approved by: Kathi Huynh MD, PhD on 02/23/2016 at 14:54
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
--- NOTE | 2016-02-23 15:17 | CONS ---
[address] [address] CONSULTATION REPORT PATIENT: PB MUNOZ : 1980 MR#: [id number] ADMIT: 02/17/2016 JOB ID: [id number] DATE OF SERVICE: 02/23/2016 REQUESTING PHYSICIAN: Hospitalist team. REASON FOR CONSULTATION: Prolonged pauses of 14 seconds and atrial fibrillation. PROBLEM LIST: 1. Severe developmental delay, nonverbal. 2. Paroxysmal atrial fibrillation. 3. Sick sinus syndrome. 4. Prolonged pauses of 14+ seconds. 5. Preserved biventricular function and valvular structure and function. MEDICATIONS: No current cardiac medications. IDENTIFICATION: The patient is a pleasant, 35-year-old gentleman with severe developmental delay, who is nonverbal, with a structurally normal heart. Admitted with MRSA pneumonia to the hospital and found to be in paroxysmal atrial fibrillation with rapid ventricular response, punctuated by profound bradycardia with pauses of 14+ seconds, in the absence of any aggravating agents. He has been in the hospital for over one week, treated with IV antibiotics, and is healing from his inflammatory process. He has been deemed by the Infectious Disease Service to be nonbacteremic at the time. He continues to have periods of rapid atrial fibrillation punctuated by bradycardia. IMPRESSION AND RECOMMENDATION: The patient is a pleasant, 35-year-old with a structurally normal heart, in the setting of severe developmental delay, who has paroxysmal atrial fibrillation and sick sinus syndrome. I recommended dual-chamber pacemaker implantation. We discussed the risks and benefits of the procedure in detail with his adoptive mother/caregiver. Ultimately, she wishes to proceed. PLAN: Dual-chamber pacemaker implantation. Thank you very much for allowing me to participate in the care of Mr. Munoz. Please call with any questions. I spent greater than 1 hour with this patient coordinating his care, reviewing his chart. Greater than 50% of this time was spent in counseling.
--- NOTE | 2016-02-23 15:31 | PCM.HPANE ---
Patient Data Surgeon Admitting Provider:Glenroy Mims MD Attending Provider:Glenroy Mims MD Primary Care Physician:Gautam Hammer MD Other Provider: Reason for Visit Dysrythmia Ht/WT & BMI Weight (Kilograms): 77.100 Body Mass Index .00 Allergies Coded Allergies: morphine (Verified Allergy, Severe, 02/17/16) Seizures penicillin G (Verified Allergy, Severe, 02/17/16) Uncoded Allergies: SULFA (Allergy, Severe, 01/17/11) Diabetes History Current Bedside Blood Glucose: 91 MRSA MRSA: Yes (current in sputum) Medications Reported Medications Cephalexin 500 Mg [id number] Mg PO TID #40 CAPSULE Ref 0 02/18/16 Hydrocodone-Acetaminophen 5-325 mg 1 Each Tablet1 Tablet PO Q8hrs PRN For Pain Ref 0 02/18/16 Carbamazepine 100 Mg [id number] Mg PO HS 02/18/16 Carbamazepine 200 Mg [id number] Mg PO QAM 02/18/16 Levetiracetam (Keppra)1,000 Mg Tablet1,000 Mg PO BID 02/18/16 Ubidecarenone (Co Q-10)10 Mg [id number] Mg PO DAILY 02/18/16 Multivitamin (Once Daily)1 Each Tablet1 Each PO DAILY 02/18/16 Discontinued Reported Medications [vitamins/minerals] No Conflict Check1 Po Daily 01/19/11 Naproxen Sod-Expunged Drug, Do Not Renew!! (Aleve-Expunged Drug,Do Not Renew!) 220 Mg [id number] Mg PO PRN 01/19/11 [tegretol 400mg] No Conflict Check2 Po Bid 01/19/11 History History of ENT Problems?: No Hx of Heart Problems?: No Other Cardiac History: no family here, pt unable to answer questions d/t developmental delay Hx of Respiratory Problem?: Yes Respiratory History: Positive for:: Pneumonia (multiple times) Other Resp Pertinent History: no family here, pt unable to answer questions d/ t developmental delay Hx Neurologic Problems?: Yes Neurological History: Positive for:: Seizures Other Neurological Pertinent: no family here, pt unable to answer questions d/ t developmental delay Hx of GI Problems?: No Hx of Problems?: Yes Genitourinary History: Positive for:: Kidney Stones Urinary Tract Infection ("chronic bladder infection" per [place] records) Other Pertinent History: no family here, pt unable to answer questions d/t developmental delay Male Hx: Denies:: Prostate Problems Scrotal Mass Testicular Surgery Other Skin Pertinent History: no family here, pt unable to answer questions d/ t developmental delay Hx Musculoskeletal Problems?: Yes Musculoskeletal History: Positive for:: Back Injury (knee pain) Musculoskeletal Trauma (head injury) Hx of Psycho/Social Problems?: Yes Psycho Social History: Positive for:: Anxiety Hx Depression Other Psych Pertinent History: answers per [place] hospital records no family here, pt unable to answer questions d/t developmental delay Hx Any Other Health Problems?: No Bedside Blood Glucose: 91 Other Pertinent History: no family here, pt unable to answer questions d/t developmental delay Hx Alcohol Use: NoHx Substance Use: NoHave You Smoked inLast 12 mo: No Stop/Bang P-Blood Pressure: treated: No B- Body Mass Index > 35 kg/m2: No A- Age over 50: No N- Neck Large Circumference: No G- Gender Male: Yes Risk Assessment Category Category 1A: Patient has history of documented sleep apnea, and HAS NOT received any narcotic, sedative or anesthesia administration during this stay. Category 1B: Patient has history of documented sleep apnea, and HAS received any narcotic , sedative or anesthesia administration during this stay Category 2: Patient has SUSPECTED Obstructive Sleep Apnea, and HAS received any narcotic , sedative or anesthesia administration during this stay. Category 3: Patient has SUSPECTED Obstructive Sleep Apnea and HAS NOT received narcotic, sedative or anesthesia administration during this stay. Category 4: Outpatient in Procedural Areas with known sleep apnea or who screen positive for High Risk via the STOP/BANG questionnaire. Exam Exam Vital Signs Vital Signs Date Time Temp Pulse Resp B/P Pulse Ox O2 Delivery O2 Flow Rate FiO2 02/23/16 11:07 82 02/23/16 08:30 Supplement Oxygen 02/23/16 08:30 36.9 83 17 90/61 95 OxyMask 6.00 02/23/16 04:00 Supplement Oxygen 02/23/16 04:00 80 02/23/16 04:00 36.4 80 15 90/60 96 OxyMask 6.00 General Appearance: Other (severe autism unable to communicate) HEENT/AIRWAY: MP 2, Neck Movement (neck flexion at baseline), Mouth Opening (2 FBMO) Lungs: Diminished Heart: Other (irregularly irregular with pauses) Meds/Labs/Diagnostics Admission Meds Current Medications Lactated Ringer's (Lr) 1,000 ml @ 120 mls/hr Q8H20M ONCE IV Last administered on 02/23/16t 08:22; Start 02/23/16 at 05:00; Stop 02/23/16 at 13:19 Bedside Blood Glucose: 91 Labs Test 02/18/16 05:10 02/18/16 11:00 02/19/16 05:00 02/19/16 11:45 Levetiracetam (Keppra) Level 10.3ug/mL (10.0-40.0) Prothrombin Time 12.7sec (8.1-12.5) Prothromb Time International Ratio 1.18ratio Ionized Calcium 1.42mmol/L (1.17-1.32) Phosphorus Level 2.9mg/dL (2.5-4.9) Thyroid Stimulating Hormone (TSH) 9.040uIU/mL (0.450-4.500) Free Thyroxine 1.48ng/dL (0.82-1.77) Hepatitis C Antibody <0.1s/co ratio (0.0-0.9) HIV (1&2) Ag and Ab, 4th Generation Non reactive (Non Reactive) Test 02/20/16 05:00 02/21/16 05:20 02/21/16 15:04 02/22/16 05:00 Troponin T < 0.010ug/L (0.0-0.011) Band Neutrophils % 2% (1-5) Pro-B-Type Natriuretic Peptide 146.0pg/mL (0-86) Magnesium Level 2.1mg/dL (1.6-2.6) Lactic Acid Level 0.5mmol/L (0.4-2.0) Total Bilirubin 0.2mg/dL (0.0-1.2) Aspartate Amino Transf (AST/SGOT) 27U/L (0-50) Alanine Aminotransferase (ALT/SGPT) 40U/L (0-44) Alkaline Phosphatase 73U/L (25-150) Total Protein 5.3g/dL (6.4-8.4) Albumin 3.0g/dL (3.4-5.0) Test 02/23/16 03:50 White Blood Count 8.7th/mm3 (3.8-10.1) Red Blood Count 3.62mil/mm3 (4.40-5.80) Hemoglobin 10.6g/dL (13.8-17.2) Hematocrit 32.0% (41.0-50.0) Mean Corpuscular Volume 88.4fL (81-100) Mean Corpuscular Hemoglobin 29.3pg (27.0-35.0) Mean Corpuscular Hemoglobin Concent 33.1% (32.0-37.0) Red Cell Distribution Width 13.6% (12.3-15.4) Platelet Count 352bil/L (150-400) Neutrophils (%) (Auto) 64.4% (40-74) Lymphocytes (%) (Auto) 26.2% (14-46) Monocytes (%) (Auto) 8.2% (4-12) Eosinophils (%) (Auto) 0.5% (0-5) Basophils (%) (Auto) 0.1% (0-3) Sodium Level 139mEq/L (134-144) Potassium Level 4.1mEq/L (3.5-5.2) Chloride Level 105mEq/L (97-108) Carbon Dioxide Level 28mmol/L (18-29) Blood Urea Nitrogen 7mg/dL (6-20) Creatinine 0.40mg/dL (0.76-1.27) Estimat Glomerular Filtration Rate 260mL/min (>59) Glucose Level 97mg/dL (60-99) Calcium Level 9.8mg/dL (8.5-10.1) Procalcitonin < 0.05ng/mL (See Comment) Plan Impression Patient chart reviewed, patient interviewed and anesthestic plan with risks, benefits, and alternatives discussed, and informed consent obtained. NPO Status: > 8 hrs ASA Physical Status: ASA3 Severe Disease (severe autism) Anesthetic Plan: MAC Bene/Risks/Altern/Consents: Yes HP Complete Prior to Induction: Yes Charanjit Perla MD Feb 23, 2016 11:38
--- NOTE | 2016-02-23 15:31 | PCM.ANEP2 ---
Post Anesthesia Evaluation ASA/CMS Post Anesthesia VS in Patient's Normal Range?: Yes Resp Stable; Airway Patent?: Yes CV Function & Hydration Stable: Yes Mental Status Recovered?: Yes Pain control Satisfactory?: Yes N/V Control Satisfactory?: Yes Charanjit Perla MD Feb 23, 2016 15:31
--- NOTE | 2016-02-23 15:31 | PCM.ANEP1 ---
Post Anesthesia Phase 1 PACU Phase 1 Assessment Vital Signs Vital Signs Date Time Temp Pulse Resp B/P Pulse Ox O2 Delivery O2 Flow Rate FiO2 02/23/16 15:15 100 02/23/16 15:15 81 16 102/65 98 Oxy Mask 10.00 02/23/16 15:00 80 13 96/63 96 Oxy Mask 10.00 02/23/16 15:00 100 02/23/16 14:55 71 12 105/62 98 Oxy Mask 10.00 02/23/16 14:55 100 02/23/16 14:45 100 02/23/16 14:45 63 12 98/65 98 Oxy Mask 10.00 02/23/16 14:40 100 02/23/16 14:40 65 12 97/64 99 Oxy Mask 10.00 02/23/16 14:35 100 02/23/16 14:35 72 22 103/65 100 Oxy Mask 10.00 02/23/16 14:30 81 22 105/65 100 Oxy Mask 10.00 02/23/16 14:30 100 02/23/16 12:30 36.7 86 11 92/56 96 OxyMask 6.00 02/23/16 11:07 82 02/23/16 08:30 Supplement Oxygen 02/23/16 08:30 36.9 83 17 90/61 95 OxyMask 6.00 Anesthetic Administered: MAC Level of Alertness: Drowsy, not talking (baseline mental status) MICHAELS's with Equal Strength: Yes Pain: No Nausea or Vomiting: No Oxygen Delivery: Simple Mask Lungs: Diminished Dermatome Level: Full Sensation Charanjit Perla MD Feb 23, 2016 15:31
--- NOTE | 2016-02-23 15:44 | NUR ---
took over pt care at 3pm
--- NOTE | 2016-02-23 16:29 | NUR ---
REY POST PACEMAKER PT WAS RECEIVED FROM PUBLIC POLICY MEDIATOR AT 1430. LEFT UPPER CHEST DRSG HAS REMAINED FREE FROM BLEEDING OR HEMATOMA. ICE BAG ON. DUAL CHAMBER PACER WAS PLACED. POST EKG AND CXR WERE DONE. MOM AT BEDSIDE AND DISCUSSED CARE WITH DR OLIVAS. VSS. PT IS ALERT AND OPENING EYES. REPORT GIVEN TO LUCITA Soliz RN AND PT AND HIS NURSING CARE WERE TRANSFERRED BACK TO ROOM 1620. RN TO RN BEDSIDE HANDOFF WAS DONE. HEART MONITOR ON.
--- NOTE | 2016-02-23 17:10 | OP ---
[address] [address] OPERATIVE REPORT PATIENT: PB MUNOZ : 1980 MR#: [id number] ADMIT: 02/17/2016 JOB ID: [id number] DATE OF SURGERY: 02/23/2016 PREOPERATIVE DIAGNOSIS(ES): 1. Sick sinus syndrome. 2. Severe developmental delay. POSTOPERATIVE DIAGNOSIS(ES): 1. Sick sinus syndrome. 2. Severe developmental delay. PROCEDURES PERFORMED: 1. Dual-chamber pacemaker implantation. 2. Fluoroscopy. SURGEON: Glenroy Mims MD, electrophysiology. SUPERVISOR SPEECH: Charanjit Love. IMPLANTED DEVICES: 1. [employer] pulse generator, model [id number], serial #[id number]. 2. Right atrial lead [employer] 208TC, 52 cm, serial #[id number]. 3. RV lead [employer] 2088TC, 58 cm, serial #[id number]. ANESTHESIA: Monitored anesthesia care was provided for this case. INDICATION: Mr. Munoz is a 35-year-old man with a structurally normal heart, severe developmental delay and sick sinus syndrome. After discussion of the risks and benefits of pacemaker implantation, he opted to proceed. PROCEDURAL DESCRIPTION: Following informed signed consent, the patient was taken to the EP laboratory in a fasting nonsedated state, where he was prepped in the usual sterile fashion. The left infraclavicular region was infiltrated with 40 cc of a 50/50 mixture of bupivacaine and lidocaine. Once adequate anesthesia had been achieved, a 3 cm incision was performed 2 cm below the left clavicle. Dissection was carried down to the pectoralis fascia and a pocket was then fashioned using a combination of electrocautery and blunt dissection. Once adequate hemostasis had been achieved, access to the left lower extremity was done with a micropuncture needle twice to deploy two 0.035, 3 mm J guidewires. Over the first of these, a 6-Venezuelan tear-away sheath was advanced. An active fixation wire was advanced to the RV outflow tract to the RV apex. The lead was affixed in position using the associated active fixation screw. The lead was connected to the external analyzer and demonstrated appropriately sensed R waves, impedance, and capture threshold. The lead was checked to 10 V and there was no evidence of diaphragmatic stimulation. Attention was now paid to placement of the right atrial lead. Over the previously deployed J guidewire, another 6-[place]an tear-away sheath was advanced. Once the guidewire was removed, an active fixation wire was advanced to the right atrial appendage. It was affixed in position utilizing the associated active fixation screw. The lead was connected to the external analyzer and demonstrated appropriately sensed P waves, impedance, and capture threshold. Extensive mapping was undertaken in the to find an area of acceptable sensing. Ultimately, such a position was found. The lead was then connected to the external analyzer and demonstrated appropriately sensed P waves, impedance, and capture threshold. The lead was checked to 10 V and there was no evidence of diaphragmatic stimulation. Once the position and redundancy of both leads was confirmed with multiple fluoroscopic views, the leads were anchored to the prepectoralis fascia using their associated anchoring sleeves and two Ethibond sutures. The pocket was then copiously irrigated with antibiotic irrigation. The leads were connected to a generator and the generator was placed in the pocket and affixed to the floor of the pocket using 1-0 Ti-Cron suture. The incision was then closed with running layers of absorbable suture. The wound was dressed with skin adhesive and a small dressing. At the end the procedure, the needle, sponge, and instrument counts were all correct. COMPLICATIONS: None. ESTIMATED BLOOD LOSS: Negligible. DEVICE MEASURED DATA: 1. Right atrial lead 1.1 mV, 390 ohms, 0.75 V at 0.4 msec. 2. RV lead 6.6 mV, 540 ohms, 0.75 V at 0.4 msec. FINAL PROGRAM PARAMETERS: DDD 60-130 beats per minute. IMPRESSION: Successful dual-chamber pacemaker implantation. PLAN: 1. Stat portable chest x-ray. 2. PA and lateral chest x-ray in the morning. 3. Device interrogation. 4. IV vancomycin through tomorrow. 5. Doxycycline x7 days starting tomorrow. 6. Wound check in one week. ATTENDING STATEMENT: Glenroy Mims MD, cd mixer helper, was present for and supervised/performed all aspects of this procedure.
[2016-02-23] MEDS: carBAMazepine 200 mg Tablet PO SCH ×2 (20:30→21:00)
[2016-02-23] MEDS: levETIRAcetam Inj 1,000 MG in 0.9% Sodium Chloride 100 ML IV SCH (21:20)
[2016-02-23] MEDS: Erythromycin 0.5% 3.5 Gm Ophthalmic Ointment BOTH_EYES SCH (23:31)
[2016-02-24] VITALS (8 sets, daily range): BP systolic 80–99; BP diastolic 43–70; PULSE 64–94; RESP 14–16; O2SAT 93–100
[2016-02-24] MEDS: 0.9% Sodium Chloride 1,000 ML IV SCH ×6 (00:28→19:51)
[2016-02-24] MEDS: Heparin 5,000 Unit/mL Inj SUBQ SCH ×3 (00:30→17:04)
[2016-02-24] MEDS: Phenylephrine Inj 20,000 MCG in 0.9% Sodium Chloride 250 ML IV SCH ×3 (00:30→18:06)
[2016-02-24] MEDS ORDERED: Vancomycin Inj 1,000 MG in IV Premix 1 EACH IV ONE (02:30)
[2016-02-24 05:18] LABS: BASOPHILS % (AUTO) 0.1 % (0-3); EOSINOPHILS % (AUTO) 0.4 % (0-5); MONOCYTES % (AUTO) 7.2 % (4-12); Mean Corpuscular Hemoglobin 29.3 pg (27.0-35.0); Mean Corpuscular Volume 88.5 fL (81-100); NEUTROPHILS % (AUTO) 71.7 % (40-74); Platelet Count 345 bil/L (150-400)
[2016-02-24] MEDS: carBAMazepine 200 mg Tablet PO SCH ×2 (08:30→21:00)
[2016-02-24] MEDS: Erythromycin 0.5% 3.5 Gm Ophthalmic Ointment BOTH_EYES SCH ×2 (09:22→21:06)
[2016-02-24] MEDS: levETIRAcetam Inj 1,000 MG in 0.9% Sodium Chloride 100 ML IV SCH ×2 (09:22→21:06)
--- NOTE | 2016-02-24 10:02 | DRSVH ---
PROCEDURE: X-RAY CHEST ONE VIEW, PORTABLE ([id number]) INDICATIONS: For new lead placement TECHNIQUE: One view of the chest was acquired. COMPARISON: [facility], CR, XR CHEST 1VW (PORTABLE), 02/23/2016, 14:29. FINDINGS: Surgical changes and devices: Stable positioning of dual chamber left cardiac pacer and right PICC. Lungs and pleura: Persistent bibasilar and mid right lung airspace opacity similar prior examination. Small right-sided pleural effusion redemonstrated. Mediastinum: Mediastinal contours appear normal. Heart size is normal. Bones and chest wall: No suspicious bony lesions. Overlying soft tissues appear unremarkable. IMPRESSION: 1. Support lines and tubes. 2. Persistent small right pleural effusion and mid/basilar air space opacities not significantly reagan ged. Dictated by: Jeovanny BARNETT Interpreted: Randee Tinajero MD on 02/24/2016 at 10:01 Transcribed by: YADIEL on 02/24/2016 at 10:01 Approved by: Randee Tinajero M.D. on 02/24/2016 at 16:15
--- NOTE | 2016-02-24 10:33 | NUR ---
Called and spoke with Evy Ramirez at [facility] and she is not going to have openings until Tuesday. Updated BIOINFORMATICIST
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
--- NOTE | 2016-02-24 15:04 | NUR ---
Social Work Note: Continued Discharge Planning Data& Assessment: Per MD pt is medically ready for discharge. Pt mother does not feel pt is medically ready to discharge and requested to begin appeal process. JAMMIE notified RUSS RN. Pt mother also requested information on renting a wheelchair. JAMMIE received quotes from local DME companies and wheelchair sizes. Pt mother explained that she plans to go to [facility] [place] in [place] to rent a transport wheelchair. Pt mother provided with DME [facility] information. Pt mother explained she would rather take pt to outpt PT and is declining SNF or HH services as she believes that pt would benefit more from outpt PT and pt's health and wellbeing would decrease if pt went to SNF. JAMMIE offered to fax clinicals to pt DDA CM, but pt mother declined and declined providing the CM information to JAMMIE. Pt mother denies any other needs. No other discharge needs identified. Plan: Pt mother is appealing the discharge on behalf of pt. Pt will discharge home with outpt PT and wheelchair rental pt mother is coordinating with [facility]. Pt mother denies any other needs. No other discharge needs identified. SW to continue to follow if any needs arise. BIANCA Zavala
--- NOTE | 2016-02-24 16:00 | NUR ---
Activity/BP Patient somnolent today, was told in report he had been up most of the night watching television. Patient not opening eyes on command but will pull hand away when repositioning sensor SpO2 or when pressure is applied to nail beds. BP also low systolic in the the low to mid 80s. MD demarco and 500 ml bolus given and PT came and we sat patient up. Systolic BP came up into the 90s. Patient able to stand briefly with PT and this nurse. Patient resting in bed, mother at bedside.
--- NOTE | 2016-02-24 18:18 | NUR ---
Transfer/Impulsive Patient was sitting up in chair and other requested we move him back. I told her I would find another staff member to assist me and I would be right back. She stated "Oh I will just do it myself", I explained that we needed to make sure patient was safely transferred due to weakness r/t being in bed for several days and arm immobility r/t pacemaker insertion. The patients mother stated she understood but to hurry up. I called PT who was unavailable but i immediately found a EQUIPMENT OR MACHINERY CLEANER to help. Upon entering the room patient was laying with his back on the bed and legs and bottom hanging off the bed with his mother laying over the top of him. The aid and I quickly assisted the mother in getting patient into bed. The mother stated " He just went for it he wasn't going to wait". Tucked patient in bed, turned on a movie for him, call light is within reach and mother is at bedside.
--- NOTE | 2016-02-24 19:57 | NUR ---
Transfer Order received to transfer patient off floor. Pt is no longer on telemetry. Pt in no acute distress. Safe patient nurse report given to Harjinder Hargrove RN. All questions answered. All belongings, medications and charts transferred with patient from [facility] room #2010 to Room #3015. Vitals WNL for patient.
[2016-02-25] MEDS: Heparin 5,000 Unit/mL Inj SUBQ SCH ×2 (00:30→09:50)
[2016-02-25] MEDS: Phenylephrine Inj 20,000 MCG in 0.9% Sodium Chloride 250 ML IV SCH ×2 (02:54→09:50)
[2016-02-25 04:52] VITALS: BP 104/70; PULSE 81; RESP 18; O2SAT 95
[2016-02-25] MEDS: 0.9% Sodium Chloride 1,000 ML IV SCH ×2 (06:28→07:20)
[2016-02-25 06:44] LABS: BASOPHILS % (AUTO) 0.1 % (0-3); EOSINOPHILS % (AUTO) 0.3 % (0-5); MONOCYTES % (AUTO) 8.8 % (4-12); Mean Corpuscular Hemoglobin 29.7 pg (27.0-35.0); Mean Corpuscular Volume 88.8 fL (81-100); NEUTROPHILS % (AUTO) 73.2 % (40-74); Platelet Count 253 bil/L (150-400)
--- NOTE | 2016-02-25 07:00 | NUR ---
Transfer of Care Pt arrived in CCU bed and will remain in CCU bed at this time. Pt nonverbal on arrival and this RN is unable to assess Pts level of orientation. Pt is alert and looking around room and fallows staff with eyes. Pt has wilson in place as well as brief. Seizure pads in place on bed and Pt arrived with bags of personal belongings. Pt has been compliant with care and does help with turning for renu care and position changes. Miller bed alarm placed under Pt and Bed in lowest position, call light in Pt reach.
[2016-02-25] MEDS: levETIRAcetam Inj 1,000 MG in 0.9% Sodium Chloride 100 ML IV SCH (09:46)
[2016-02-25] MEDS: Erythromycin 0.5% 3.5 Gm Ophthalmic Ointment BOTH_EYES SCH (09:54)
--- NOTE | 2016-02-25 11:06 | PCM.DIMED ---
Discharge Instructions Date of Service Feb 25, 2016 Dates of Hospitalization Feb 17, 2016 at 17:34 Discharge Diagnosis Discharge Diagnosis Atrial Fibrillation with Asystole S/P Pacemaker placement. MRSA Pneumonia. Conjunctivitis. Diet Heart Healthy Activity No restrictions (Patient may resume usual activities gradually as tolerated.) Call your provider Fever or Chills, Shortness of breath, Bleeding, Chest pain, Vomitting, Excessive diarrhea, Weakness (unilateral), Other Patient Instructions Follow-up Provider: Gautam Hammer MD Follow-up with PCP in: 1 week Surjit Benavides MD Feb 25, 2016 11:06
[2016-02-25] MEDS ORDERED: DOXY100C PO (11:13)
[2016-02-25] MEDS ORDERED: ERYT1OIN7 BOTH_EYES (11:13)
--- NOTE | 2016-02-25 11:40 | NUR ---
Social Work-discharge: Data:EMR Reviewed. Pt is on day 8 of hospitalization for dysrhythmia per H&P. Pt is medically stable to discharge home today. Pt's mother declining SNF and HH services for pt. Mother plans on taking pt home today and will do outpt PT. Pt's mother renting a w.c from [employer]. Mother declining all services from . No discharge needs identified. All updated and agreeable to plan. Assessment:Pt who is independent at baseline. Plan:Pt to discharge home today via POV. Mother declining all services, not wanting pt to go to SNF or have HH services. Mother renting w/c from [employer]. No discharge needs identified. All updated and agreeable to plan. BIANCA Thomas
--- NOTE | 2016-02-25 12:00 | NUR ---
Discharge Mom requesting d/c early this AM d/t [place] levels. Cardiology and hospitalist notified. [place] and PICC line d/c. Provider assessed. D/C to home with mom via private care. Found mom and pt in front hallway. Mom wanted to go right away, this RN insisted on discussing d/c instructions, Rxs, sling and activity limitations. Mom comfortable with plan of care and f/u apts. Escorted off floor with person belongings from within room via w/c and COORDINATOR OF HEALTH SERVICES.
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
== END 2016-02-25 11:40 | disposition home or self-care (01) | DRG 242 ==
LOC: OBSVTOIN 17:34 → MPC 17:34 → CCU 17:44 → PCC 18:16 → CCU 02-18 11:38 → PCC 02-19 09:03 → CCU 02-22 04:33 → PCC 02-23 07:59 → MPC 02-24 19:43
PROVIDERS: ADMIT Internal Medicine Cardiovascular Disease; ATTEND Internal Medicine Cardiovascular Disease
PROC: 4A033R1 Measurement of Arterial Saturation, Peripheral, Percutaneous Approach (ICD-10-PCS; 2016-02-18)
PROC: 0JH606Z Insertion of Pacemaker, Dual Chamber into Chest Subcutaneous Tissue and Fascia, Open Approach (ICD-10-PCS; principal; 2016-02-23)
PROC: 02HL3JZ Insertion of Pacemaker Lead into Left Ventricle, Percutaneous Approach (ICD-10-PCS; 2016-02-23)
PROC: 02H63JZ Insertion of Pacemaker Lead into Right Atrium, Percutaneous Approach (ICD-10-PCS; 2016-02-23)
DX: I48.0 Paroxysmal atrial fibrillation (principal); J15.212 Pneumonia due to Methicillin resistant Staphylococcus aureus; F84.0 Autistic disorder; G40.909 Epilepsy, unspecified, not intractable, without status epilepticus; Z86.718 Personal history of other venous thrombosis and embolism; F81.9 Developmental disorder of scholastic skills, unspecified; I95.9 Hypotension, unspecified; J45.909 Unspecified asthma, uncomplicated; E87.6 Hypokalemia; R13.10 Dysphagia, unspecified; R09.02 Hypoxemia; Z63.9 Problem related to primary support group, unspecified; I49.5 Sick sinus syndrome